=== PATIENT | male | born 1980 | race Two or more races ===

== ENCOUNTER → 2018-03-06 | Outpatient (REF) | payer BC ==
[2018-03-06 17:11] LABS: PLATELET COUNT, AUTOMATED 354 K/uL (150-450)
== END ==
LOC: ZZSTITCHES 17:02
PROVIDERS: ATTEND Physician Assistant
DX: N39.0 Urinary tract infection, site not specified (principal); R31.9 Hematuria, unspecified
CPT/HCPCS: 82040; 82247; 82310; 82374; 82435; 82565; 82947; 84075; 84132; 84155; 84295; 84450; 84460; 84520; 85025

== ENCOUNTER → 2018-03-08 | Outpatient (CLI) | payer BC | LOC: LAB 07:22 | DX: N30.01 Acute cystitis with hematuria (principal); R82.79 Other abnormal findings on microbiological examination of urine | CPT/HCPCS: 81001; 87070; 87088; 87205 ==